=== PATIENT | female | born 1970 | race Caucasian/White ===

== ENCOUNTER 2017-02-25 09:25 | Emergency (ER) | payer MEDICAID, SELFPAY ==
[~2017-02-25] VITALS: Ht 162.6 cm; Wt 60.0 kg
[2017-02-25 09:46] VITALS: BP 136/79
[2017-02-25] MEDS ORDERED: ONDANSETRON 2MG/ML, 2ML ONE (09:58)
[2017-02-25] MEDS ORDERED: KETOROLAC 30 MG/1 ML ONE ×2 (09:58→09:59)
[2017-02-25] MEDS ORDERED: SODIUM CHLORIDE FLUSH 10ML SYR IVF ONE (10:00)
[2017-02-25] MEDS ORDERED: PLEASE ENTER HEIGHT AND WEIGHT MC SCH (10:00)
[2017-02-25] MEDS ORDERED: KETOROLAC 30 MG/1 ML IVPush ONE (10:00)
[2017-02-25] MEDS ORDERED: PLEASE ENTER ALLERGIES MC SCH ×2 (10:00)
[2017-02-25 10:01] LABS: BLOOD UREA NITROGEN 15 mg/dL (7-18)
[2017-02-25 10:06] LABS: IS PT STATUS REG ER OR PRE ER? YES
[2017-02-25] MEDS ORDERED: SODIUM CHLORIDE 0.9% 1,000ML IVBOLUS ONE (10:30)
== END 2017-02-25 11:11 | disposition home or self-care (01) ==
LOC: ED 10:25
DX: R07.89 Other chest pain (principal); Z90.49 Acquired absence of other specified parts of digestive tract; Z98.51 Tubal ligation status
CPT/HCPCS: 36415; 71020; 80048; 82040; 84484; 85025; 85379; 93005; 96374; 99285; J1885